=== PATIENT | female | born 1955 | race Caucasian/White ===

== ENCOUNTER 2018-11-20 10:45 | Inpatient (IN) | payer OTHER ==
[~2018-11-20] VITALS: Ht 162.6 cm; Wt 64.2 kg
[2018-11-20 11:06] LABS: ABSOLUTE NEUTROPHILS 7.6 thou/uL (1.4-8.2); BASOPHILS 0.6 % (0.0-2.0); EOSINOPHILS 0.2 % (0.0-3.0); LYMPHOCYTES 18.6 % (24.0-44.0); MCH 30.2 pg (26.0-34.0); MCHC 33.5 g/dL (28.0-37.0); MCV 90.4 fL (80.0-100.0); MONOCYTES 5.2 % (1.0-8.0); PLATELET COUNT 223 thou/uL (150-400); POLYS 75.4 % (36.0-66.0); RBC 4.65 mil/uL (4.20-5.00); WBC 10.1 thou/uL (4.0-11.0)
[2018-11-20 11:25] LABS: CALCIUM 9.7 mg/dL (8.5-10.1); POTASSIUM 4.8 mmol/L (3.5-5.1)
[2018-11-20 11:30] LABS: TROPONIN-I 0.26 ng/mL (<0.06)
[2018-11-20 14:13] VITALS: BP 109/54
--- NOTE | 2018-11-20 14:59 | 2DMMODE ---
[facility] [place] [address] 2 D/M-MODE ECHOCARDIOGRAM Name: RAH MG Room #: 170-9 ADM IN ..#: [id number] ������������� Admission: 11/20/18 ������������� Attend Phys: Marlon Dozier MD Discharge: ��� ������������� ��� Date of : 51 Date of Service: 11/20/18 1459 �� Report #: [id number] �������� ��������������������������������������������[id number] THIS REPORT FOR: //name// APPROVED REPORT Study performed: 11/20/2018 13:27:33 EXAM: Comprehensive 2D, Doppler, and color-flow Echocardiogram Patient Location: ER Room #: 9 Status: routine BSA: 1.66 HR: 77 bpm BP: 100/52 mmHg Rhythm: NSR Other Information Study Quality: Good Indications Chest Pressure Palpitations Chest Pain elevated troponin x1 2D Dimensions RVDd: 30.42 mm IVSd: 11.86 (7-11mm) LVOT Diam: 22.24 (18-24mm) LVDd: 30.72 mm PWd: 11.52 (7-11mm) Ascending Ao: 34.89 (22-36mm) LVDs: 22.68 (25-40mm) Aortic Root: 35.14 mm IVC: 29.00 mm Volumes Left Atrial Volume (Systole) Single Plane 4CH: 24.81 mL Single Plane 2CH: 22.69 mL LA ESV Index: 17.00 mL/m2 Aortic Valve AoV Peak Juan.: 0.96 m/s AO Peak Gr.: 3.68 mmHg LVOT Max P.16 mmHg LVOT Max V: 0.89 m/s KEEGAN Vmax: 3.60 cm2 Mitral Valve [facility] [address] [place] [address] 2 D/M-MODE ECHOCARDIOGRAM Name: RAH MG Room #: 170-9 ADM IN [facility].#: [id number] ������������� Admission: 11/20/18 ������������� Attend Phys: Marlon Dozier MD Discharge: ��� ������������� ��� Date of : 51 Date of Service: 11/20/18 1459 �� Report #: [id number] �������� ��������������������������������������������[id number] E/A Ratio: 1.4 MV Decel. Time: 168.41 ms MV E Max Juan.: 0.86 m/s MV A Juan.: 0.63 m/s MV PHT: 48.84 ms IVRT: 101.50 ms Pulmonary Valve PV Peak Juan.: 0.62 m/s PV Peak Gr.: 1.53 mmHg Pulmonary Vein P Vein S: 0.53 m/s P Vein A: 0.21 m/s P Vein D: 0.35 m/s P Vein A Dur.: 83.0 msec P Vein S/D Ratio: 1.51 Tricuspid Valve TR Peak Juan.: 2.05 m/s RAP Estimate: 10.00 mmHg TR Peak Gr.: 16.85 mmHg PA Pressure: 27.00 mmHg Left Ventricle The left ventricle is normal size. There is normal LV segmental wall motion. There is normal left ventricular wall thickness. The left ventricular systolic function is normal. The left ventricular ejection fraction is within the normal range. LVEF is 55-60%. Moderate diastolic dysfunction is present (pseudonormal filling). Right Ventricle The right ventricle is normal size. The right ventricular systolic function is normal. Atria The left atrium size is normal. The right atrium size is normal. Aortic Valve The aortic valve is normal in structure. No aortic regurgitation is present. There is no aortic valvular stenosis. Mitral Valve The mitral valve is normal in structure. Mild mitral regurgitation. No evidence of mitral valve stenosis. Tricuspid Valve The tricuspid valve is normal in structure. Trace tricuspid [facility] [address] [place] [address] 2 D/M-MODE ECHOCARDIOGRAM Name: RAH MG Room #: 170-9 ADM IN .R.#: [id number] ������������� Admission: 11/20/18 ������������� Attend Phys: Marlon Dozier MD Discharge: ��� ������������� ��� Date of : 51 Date of Service: 11/20/18 1459 �� Report #: [id number] �������� ��������������������������������������������[id number] regurgitation. PAP is estimated at 27 mmHg. Pulmonic Valve The pulmonary valve is normal in structure. Trace pulmonic regurgitation. Great Vessels The aortic root is normal in size. IVC is dilated and collapses >50% with inspiration. Pericardium There is no pericardial effusion. <Conclusion> The left ventricular systolic function is normal. There is normal LV segmental wall motion. LVEF is 55-60%. Moderate diastolic dysfunction The aortic valve is normal in structure. No aortic regurgitation or stenosis. The mitral valve is normal in structure. Mild mitral regurgitation. Trace tricuspid regurgitation. Pulmonary artery pressure estimated at 27 mmHg. There is no pericardial effusion. ��������������������������������������������� <ELECTRONICALLY SIGNED> ���������������������������������������� By: Poli Whitfield MD, FACC ��������������������������������������������� 11/20/18 1459 1459 1459 Poli Whitfield MD, FACC /INF
[2018-11-20 15:00] VITALS: BP 108/65
--- NOTE | 2018-11-20 15:35 | NUR ---
PT ARRIVED TO THE UNIT AT APPROX 1500 BY ER STAFF ACCOMPANIED BY SPOUSE. PT ALERT AND ORIENTED, VSS, DENIES PAIN, DENIES CHEST PAIN. TELE PUT ON, ADMIT STRIP PRINTED AND DOCUMENTED. PT DENIES CONCERNS AT THIS TIME, CURRENTLY RESTING IN BED. WILL ACKNOWLEDGE AND IMPLEMENT ORDERS. CONTINUING TO MONITOR.
[2018-11-20 17:39] LABS: CHOLESTEROL 202 mg/dL (<200); HDL CHOLESTEROL 47 mg/dL (>40); LDL CHOLESTEROL 143 mg/dL (<100); TC:HDL 4.3 Ratio (Not establshd); TRIGLYCERIDE 63 mg/dL (<150); VLDL 13 mg/dL (<40)
[2018-11-20 17:40] LABS: SERUM ASSESSMENT Clear
[2018-11-20 19:34] VITALS: BP 104/60
[2018-11-20 23:44] VITALS: BP 104/60
[2018-11-21] VITALS (12 sets, daily range): BP systolic 95–135; BP diastolic 44–68
--- NOTE | 2018-11-21 03:23 | NUR ---
ASSUMED PT CARE AT 1900. VITAL SIGNS STABLE, SBP IN THE 90'S, ASYMPTOMATIC. ASSESSMENT CHARTED. NO COMPLAINTS OF CHEST PAIN/PAIN. NPO AT MIDNIGHT FOR PROCEDURE IN AM. RESTED WELL THROUGH THE NIGHT. CALLS APPROPRIATELY. RESTED WELL THROUGH THE NIGHT. PROGRESSING TOWARD PLAN OF CARE. WILL CONTINUE TO MONITOR.
[2018-11-21 05:21] LABS: HEMATOCRIT 37.1 % (37.0-47.0); HEMOGLOBIN 12.3 gm/dL (12.0-15.0); MCH 30.2 pg (26.0-34.0); MCHC 33.3 g/dL (28.0-37.0); MCV 90.9 fL (80.0-100.0); RBC 4.08 mil/uL (4.20-5.00); RDW 13.1 % (10.5-14.5); WBC 7.2 thou/uL (4.0-11.0)
[2018-11-21 05:45] LABS: CALCIUM 8.3 mg/dL (8.5-10.1); CREATININE 0.8 mg/dL (0.6-1.0); POTASSIUM 4.7 mmol/L (3.5-5.1); TROPONIN-I 0.21 ng/mL (<0.06)
--- NOTE | 2018-11-21 07:18 | NUR ---
ASSUMED CARE OF PT AT 0700. 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 WILL CONTINUE TO MONITOR.
--- NOTE | 2018-11-21 09:50 | CATHLAB ---
[facility] [place] [address] INVASIVE PROCEDURE REPORT Name: RAH MG Room #: 214-P ADM IN .R.#: [id number] ������������� Admission: 11/20/18 ������������� Attend Phys: Marlon Dozier MD Discharge: ��� ������������� ��� Date of : 51 Date of Service: 11/21/18 0950 �� Report #: [id number] �������� ��������������������������������������������[id number] THIS REPORT FOR: //name// APPROVED REPORT Study performed: 11/21/2018 07:13:09 Patient Details The patient is a 63 year-old female Event Personnel Poli Whitfield Animal Care Worker, Quincy Fraire RN RN, Carlotta Zabala Monitor, Jasmin Wong RTR, UNIT AIDE Scrub Procedures Performed Left Heart Cath w/or w/o Coronaries [id number] [facility] Indication Chest pain Procedure Narrative The Right Groin^ was infiltrated with 1% Lidocaine subcutaneous anesthesia. A PINNACLE 6FR TIF Sheath #[id number] sheath was inserted into the RFA^. Coronary angiography was performed using coronary diagnostic catheters. The right coronary system was accessed and visualized with a JR4 catheter. The left coronary system was accessed and visualized with a JL4 catheter. The left ventricle was accessed and visualized with a Pigtail catheter. Left ventricular/Aortic Valve gradient assessed via catheter pullback. Left ventriculogram was performed in MORRELL projection. Closure device was deployed with a Fr MYNXGRIP 6/7F #[id number]. The patient tolerated the procedure well and there were no complications associated with the procedure. There was no hematoma. Intraoperative Conscious Sedation Sedation start time: 734 Case end Time: 0750 Fentanyl 25 mcg Versed 1 mg Fluoro Time: 1.22 minutes Dose: DAP 1141.27 cGycm2 137 mGy Contrast Type and Amount: Omnipaque 125 ml Diagnostic Cath Left Main Normal left main [facility] [place] [address] INVASIVE PROCEDURE REPORT Name: SAURAVRAH Angella Room #: 214-P ADM IN M.R.#: [id number] ������������� Admission: 11/20/18 ������������� Attend Phys: Marlon Dozier MD Discharge: ��� ������������� ��� Date of : 51 Date of Service: 11/21/18 0950 �� Report #: [id number] �������� ��������������������������������������������[id number] LAD Normal left anterior descending which extended to the inferoapex Diagonal 1 Large bifurcating first diagonal branch, angiographically normal Diagonal 2 Small second diagonal branch, angiographically normal Circumflex Large, nondominant circumflex comprised of predominantly as single large first marginal branch, angiographically normal OM1 Normal first marginal branch OM2 Small, angiographically normal second marginal branch Right Coronary The right coronary was large and dominant. R PDA Normal posterior descending branch RPLV Large, normal posterior lateral branch Left Ventriculography The left ventricle is normal in size with normal contractility. The left ventricular ejection fraction is estimated to be 60-65%. Left ventricular wall motion abnormalities are not present. There is no mitral insufficiency. Hemodynamics The aortic pressure is 128/54 mmHg with a mean of 81 mmHg. The left ventricular pressure is 133/3 mmHg with a mean of mmHg. The left ventricular end diastolic pressure is 18 mmHg. Conclusion 1. Normal global and regional left ventricular systolic function. Ejection fraction 65% 2. Normal left main 3. Normal coronary vasculature. Right coronary dominant circulation. ��������������������������������������������� <ELECTRONICALLY SIGNED> ���������������������������������������� By: Poli Whitfield MD, [facility] ��������������������������������������������� 11/21/1850 Poli Whitfield MD, FACC /INF
--- NOTE | 2018-11-22 18:15 | EKG ---
[address] [address] ELECTROCARDIOGRAM REPORT Name: REASONRAH Room #: 214-P [facility] IN M.R.#: [id number] ������������������ Admission: 11/20/18 ������������������ Attend Phys: Marlon Dozier MD Discharge: 11/21/18 ������������������ Date of : 51 Report #: [id number] ����������������������������������������������������������������� [id number] THIS REPORT FOR: //name// [facility] ED Test Date: 2018-11-20 Test Time: 10:57:17 Pat Name: RAH MG Department: Room: 214 Gender: F Specialized Language Instructor: SIA : 1955 Requested By: Andrew Lundberg Order Number: [id number] MD: Shan Hawley Measurements Intervals [place] Rate: 100 P: 58 OK: 145 QRS: -18 QRSD: 78 T: 21 QT: 342 QTc: 442 Interpretive Statements Sinus tachycardia biatrial enlargement Leftward axis deviation Nonspecific ST-T wave changes No previous ECG available for comparison Electronically Signed On 11-22-2018 18:14:54 CDT by Shan Hawley [email or web address] ��������������������������������������������� <ELECTRONICALLY SIGNED> ���������������������������������������� By: Shan Hawley MD ��������������������������������������������� 11/22/18 1814 1057 105 Shan Hawley MD /EPI
== END 2018-11-21 14:03 | disposition home or self-care (01) | DRG 282 ==
LOC: ER 10:45 → EROBS 13:40 → 2N 13:40 → ENTRNSPT 11-21 13:20 → EDTRNSPTSTS 11-21 13:26 → 2N 11-21 14:03
PROVIDERS: Internal Medicine; Nurse Practitioner; ADMIT Hospitalist
DX: I21.4 Non-ST elevation (NSTEMI) myocardial infarction (principal)
CPT/HCPCS: 10081; 10797